=== PATIENT | female | born 1995 | race Caucasian/White ===

== ENCOUNTER 2019-11-27 12:45 | Emergency (ER) | payer OTHER ==
[~2019-11-27] VITALS: Ht 172.7 cm; Wt 74.8 kg
[~2019-11-27 12:45] MED LIST: Bactrim Ds Tab1 EACH PO; CEPH500 PO; Norco 5-325 Ta1 EACH PO; Zofran8 MG PO
[2019-11-27] MEDS ORDERED: KETO10 PO (16:20)
== END 2019-11-27 16:27 | disposition home or self-care (01) ==
LOC: ER 12:45
DX: N80.9 Endometriosis, unspecified (principal); Z87.59 Personal history of other complications of pregnancy, childbirth and the puerperium; Z98.890 Other specified postprocedural states
CPT/HCPCS: 74176; 76857; 81000; 81025; 99284-25